=== PATIENT | male | born 1965 | race Caucasian/White ===

== ENCOUNTER → 2016-06-17 | Outpatient (REF) | payer OTHER | LOC: M SFHCADAM 08:44 | PROVIDERS: ATTEND Family Medicine | DX: E78.2 Mixed hyperlipidemia (principal) ==

== ENCOUNTER → 2018-08-10 | Outpatient (REF) | payer BC ==
[2018-08-10 13:42] LABS: BASO # 0.1 10^3/uL (0.0-0.2); EOS # 0.8 10^3/uL (0.0-0.50); EOS % 5.6 % (0.0-3.0); HEMATOCRIT 47.5 % (42.0-52.0); HEMOGLOBIN 15.8 g/dl (13.5-17.5); LYMPH # 3.3 10^3/uL (1.5-4.5); LYMPH % 24.4 % (24.0-44.0); MEAN CORPUSCULAR HEMOGLOBIN 29.8 pg (27.0-33.0); MEAN CORPUSCULAR HGB CONC 33.3 g/dl (32.0-36.5); MEAN CORPUSCULAR VOLUME 89.6 fl (80.0-96.0); MONO # 0.8 10^3/uL (0.0-0.8); MONO % 5.9 % (0.0-5.0); NEUTROPHILS # 8.5 10^3/uL (1.8-7.7); NEUTROPHILS % 62.7 % (36.0-66.0); PLATELET COUNT, AUTOMATED 254 10^3/uL (150-450); WHITE BLOOD COUNT 13.5 10^3/uL (4.0-10.0)
[2018-08-10 13:46] LABS: ALBUMIN 3.8 GM/DL (3.2-5.2); ALT/SGPT 52 U/L (12-78); BILIRUBIN,TOTAL 0.5 MG/DL (0.2-1.0); BLOOD UREA NITROGEN 13 MG/DL (7-18); CALCIUM LEVEL 9.3 MG/DL (8.5-10.1); CARBON DIOXIDE LEVEL 29 MEQ/L (21-32); CHLORIDE LEVEL 105 MEQ/L (98-107); CHOLESTEROL LEVEL 203 MG/DL (<200); CREATININE FOR GFR 1.02 MG/DL (0.70-1.30); GLOMERULAR FILTRATION RATE > 60.0 (>56); GLUCOSE, FASTING 90 MG/DL (70-100); HDL CHOLESTEROL 43 MG/DL (>40); LDL CHOLESTEROL 124 MG/DL (<100); NON-HDL-C 160 MG/DL; POTASSIUM SERUM 4.6 MEQ/L (3.5-5.1); SODIUM LEVEL 140 MEQ/L (136-145); TRIGLYCERIDES LEVEL 182 MG/DL (<150)
== END ==
LOC: M SFHCADAM 08:22
PROVIDERS: ATTEND Family Medicine
DX: Z00.00 Encounter for general adult medical examination without abnormal findings (principal); Z12.11 Encounter for screening for malignant neoplasm of colon

== ENCOUNTER → 2019-03-08 | Outpatient (REF) | payer BC ==
[2019-03-08 15:44] LABS: BASO # 0.1 10^3/uL (0.0-0.2); BASO % 0.8 % (0.0-1.0); EOS # 0.5 10^3/uL (0.0-0.5); EOS % 5.2 % (0.0-3.0); HEMATOCRIT 48.2 % (42.0-52.0); LYMPH # 3.6 10^3/uL (1.5-5.0); LYMPH % 37.6 % (24.0-44.0); MEAN CORPUSCULAR HEMOGLOBIN 29.6 pg (27.0-33.0); MEAN CORPUSCULAR HGB CONC 33.2 g/dl (32.0-36.5); MEAN CORPUSCULAR VOLUME 89.3 fl (80.0-96.0); MONO # 0.6 10^3/uL (0.0-0.8); MONO % 6.3 % (0.0-5.0); NEUTROPHILS # 4.8 10^3/uL (1.5-8.5); NEUTROPHILS % 49.8 % (36.0-66.0); PLATELET COUNT, AUTOMATED 277 10^3/uL (150-450); WHITE BLOOD COUNT 9.6 10^3/uL (4.0-10.0)
[2019-03-08 16:17] LABS: CHOLESTEROL RISK RATIO 4.317 (<5)
== END ==
LOC: M SFHCADAM 07:45
PROVIDERS: ATTEND Family Medicine
DX: D72.829 Elevated white blood cell count, unspecified (principal); E78.2 Mixed hyperlipidemia

== ENCOUNTER 2021-04-07 16:58 | Inpatient (IN) | payer BC ==
[~2021-04-07] VITALS: Ht 180.3 cm; Wt 84.5 kg
[2021-04-07] MEDS ORDERED: BENZ-18 (17:04)
[2021-04-07] MEDS ORDERED: SIMV20TA22 (17:04)
[2021-04-07] MEDS ORDERED: LISI10TA22 (17:04)
[2021-04-08] MEDS ORDERED: ALBUTEROL SULFATE 2.5 MG/0.5 ML INH NEB SOLN NEB ONE (00:35)
[2021-04-08] MEDS ORDERED: guaiFENesin DM LIQ 10ML UD PO ONE (00:40)
[2021-04-08 00:58] LABS: BASO # 0.2 10^3/uL (0.0-0.2); BASO % 0.8 % (0.0-1.0); EOS # 1.9 10^3/uL (0.0-0.5); HEMATOCRIT 46.5 % (42.0-52.0); HEMOGLOBIN 15.1 g/dl (13.5-17.5); LYMPH # 3.4 10^3/uL (1.5-5.0); LYMPH % 16.3 % (24.0-44.0); MEAN CORPUSCULAR HEMOGLOBIN 27.2 pg (27.0-33.0); MEAN CORPUSCULAR HGB CONC 32.5 g/dl (32.0-36.5); MEAN CORPUSCULAR VOLUME 83.8 fl (80.0-96.0); MONO % 7.8 % (2.0-8.0); NEUTROPHILS # 13.7 10^3/uL (1.5-8.5); NEUTROPHILS % 65.4 % (36.0-66.0); PLATELET COUNT, AUTOMATED 413 10^3/uL (150-450); RED BLOOD COUNT 5.55 10^6/uL (4.30-6.10)
[2021-04-08 01:14] LABS: MONO # 1.6 10^3/uL (0.0-0.8)
[2021-04-08 01:21] LABS: BLOOD UREA NITROGEN 13 MG/DL (7-18); CALCIUM LEVEL 9.8 MG/DL (8.5-10.1); CARBON DIOXIDE LEVEL 28 MEQ/L (21-32); CHLORIDE LEVEL 102 MEQ/L (98-107); CREATININE FOR GFR 0.85 MG/DL (0.70-1.30); GLOMERULAR FILTRATION RATE > 60.0 (>56); GLUCOSE, FASTING 112 MG/DL (70-100); SODIUM LEVEL 137 MEQ/L (136-145)
[2021-04-08] MEDS ORDERED: ISOVUE-370 76% 100ML VIAL As Ordered ONE (01:22)
[2021-04-08 01:43] LABS: C REACTIVE PROTEIN QUANTITATIV 8.41 MG/DL (0.00-0.30)
[2021-04-08 01:47] LABS: VENOUS BASE EXCESS 0.8 (-2.0-2.0); VENOUS HCO3 26.3 MEQ/L (23.0-27.0); VENOUS O2 SATURATION 73.6 % (60.0-80.0); VENOUS PARTIAL PRESSURE CO2 44.7 mmHg (38.0-50.0); VENOUS PARTIAL PRESSURE O2 39.7 mmHg (30.0-50.0); VENOUS PH 7.387 UNITS (7.330-7.430); VENOUS STANDARD HCO3 24.6 MEQ/L; VENOUS TOTAL CO2 27.6 MEQ/L (24.0-28.0)
[2021-04-08 01:48] LABS: ERYTHROCYTE SEDIMENTATION RATE 28 mm/hr (0-20)
[2021-04-08] MEDS ORDERED: LevoFLOXacin IV 750 MG in IV 1 EA IV ONE (03:15)
[2021-04-08] MEDS ORDERED: BENZ-18 PO (03:17)
[2021-04-08] MEDS ORDERED: LISI10TA22 PO (03:17)
[2021-04-08] MEDS ORDERED: FISH1000 PO (03:17)
[2021-04-08] MEDS ORDERED: SIMV20TA22 PO (03:17)
[2021-04-08] MEDS ORDERED: HOME MED LIST COMPLETE! XX SCH (03:20)
[2021-04-08] MEDS ORDERED: guaiFENesin SYRUP 200 MG/10 ML UDC PO PRN (04:15)
[2021-04-08] MEDS ORDERED: IPRATROPIUM 0.5MG/ALBUTEROL 2.5MG INH SOL UD 3ML (DUONEB) NEB PRN (04:15)
[2021-04-08] MEDS ORDERED: ACETAMINOPHEN TAB 650MG DOSE (2X325MG) PO PRN (04:15)
[2021-04-08] MEDS ORDERED: BENZONATATE 100MG CAPSULE PO PRN (04:25)
[2021-04-08] MEDS ORDERED: VANCOMYCIN HCL 1,000 MG in IV FLUID PLACE HOLDER 1 EA IV ONE (04:25)
[2021-04-08] MEDS ORDERED: VANCOMYCIN HCL 1,000 MG, VIAL MATE ADAPTER 1 EACH in NS 250 ML IV SCH (05:00)
[2021-04-08] MEDS ORDERED: VANCOMYCIN HCL 1,000 MG, VIAL MATE ADAPTER 1 EACH in NS 250 ML IV ONE (06:00)
[2021-04-08 08:41] LABS: BASO # 0.1 10^3/uL (0.0-0.2); BASO % 0.6 % (0.0-1.0); EOS # 1.7 10^3/uL (0.0-0.5); EOS % 9.3 % (0.0-3.0); HEMATOCRIT 42.3 % (42.0-52.0); HEMOGLOBIN 13.8 g/dl (13.5-17.5); LYMPH # 2.3 10^3/uL (1.5-5.0); LYMPH % 12.3 % (24.0-44.0); MEAN CORPUSCULAR HEMOGLOBIN 27.1 pg (27.0-33.0); MEAN CORPUSCULAR HGB CONC 32.6 g/dl (32.0-36.5); MEAN CORPUSCULAR VOLUME 83.1 fl (80.0-96.0); MONO # 1.5 10^3/uL (0.0-0.8); NEUTROPHILS # 12.8 10^3/uL (1.5-8.5); NEUTROPHILS % 69.3 % (36.0-66.0); PLATELET COUNT, AUTOMATED 387 10^3/uL (150-450); RED BLOOD COUNT 5.09 10^6/uL (4.30-6.10); WHITE BLOOD COUNT 18.6 10^3/uL (4.0-10.0)
[2021-04-08 08:51] LABS: INR 0.99; PROTHROMBIN TIME 13.5 SECONDS (12.7-14.5)
[2021-04-08 08:52] LABS: PARTIAL THROMBOPLASTIN TIME 30.7 SECONDS (25.9-37.0)
[2021-04-08] MEDS ORDERED: ENOXAPARIN 40MG/0.4ML SYRINGE (J1650 PER 10MG) SC SCH (09:00)
[2021-04-08 09:09] LABS: BLOOD UREA NITROGEN 11 MG/DL (7-18); CARBON DIOXIDE LEVEL 25 MEQ/L (21-32); CHLORIDE LEVEL 105 MEQ/L (98-107); GLOMERULAR FILTRATION RATE > 60.0 (>56); GLUCOSE, FASTING 83 MG/DL (70-100); POTASSIUM SERUM 4.4 MEQ/L (3.5-5.1); SODIUM LEVEL 138 MEQ/L (136-145)
[2021-04-08] MEDS ORDERED: LEVO750T13 PO (09:28)
[2021-04-08 10:00] VITALS: BP 122/78
[2021-04-08] MEDS ORDERED: SIMVASTATIN 20 MG TAB PO SCH (21:00)
[2021-04-09] MEDS ORDERED: LevoFLOXacin IV 750 MG in IV 1 EA IV SCH (03:00)
== END 2021-04-08 10:08 | disposition home or self-care (01) | DRG 139 ==
LOC: M ED 16:58 → M ED INP 04-08 04:12
PROVIDERS: ADMIT Family Medicine; ATTEND Family Medicine
DX: J18.8 Other pneumonia, unspecified organism (principal); I10 Essential (primary) hypertension; E78.5 Hyperlipidemia, unspecified; Z87.891 Personal history of nicotine dependence; Z88.0 Allergy status to penicillin; Z79.899 Other long term (current) drug therapy; R91.8 Other nonspecific abnormal finding of lung field; Z20.822 Contact with and (suspected) exposure to COVID-19

== ENCOUNTER → 2021-04-28 | Outpatient (CLI) | payer BC ==
[~2021-04-28] MED LIST: BENZ-18; BENZ-18 PO; FISH1000 PO; HOME MED LIST COMPLETE! XX SCH; LEVO750T13 PO; LIDOCAINE 1% MDV 20ML VIAL As Ordered ONE; LISI10TA22; LISI10TA22 PO; SIMV20TA22; SIMV20TA22 PO
[2021-04-28 12:10] VITALS: BP 146/70
== END ==
LOC: M IRPRO 08:06
PROVIDERS: ATTEND Internal Medicine Pulmonary Disease
DX: C34.32 Malignant neoplasm of lower lobe, left bronchus or lung (principal)

== ENCOUNTER → 2021-05-13 | Outpatient (CLI) | payer BC ==
[~2021-05-13] MED LIST changes: +FOLI1TAB11 PO; -HOME MED LIST COMPLETE! XX SCH; +MIDAZOLAM INJ 2MG/2ML VIAL (J2250 PER 1MG) As Ordered ONE; +ONDA-84 PO; +PROC10TA5 PO; +VANCOMYCIN 1000MG/20ML VIAL As Ordered ONE; +diphenhydrAMINE 50MG/ML VIAL (J1200) As Ordered ONE; +fentaNYL 100 MCG/2 ML INJECTION As Ordered ONE
[2021-05-13] MEDS: NS 1,000 ML IV SCH (07:19)
[2021-05-13] MEDS: VANCOMYCIN HCL 1,000 MG, VIAL MATE ADAPTER 1 EACH in NS 250 ML IV ONE (07:19)
[2021-05-13 10:06] VITALS: BP 133/77
== END ==
LOC: M IRPRO 06:49
PROVIDERS: ATTEND Specialist
DX: C34.32 Malignant neoplasm of lower lobe, left bronchus or lung (principal); Z88.0 Allergy status to penicillin
CPT/HCPCS: 36561; 99152; 99153; C1769; C1788; C1894; J1200; J1642; J1644; J2250; J3010; J3370

== ENCOUNTER → 2021-06-01 | Outpatient (POV) | payer BC ==
[~2021-06-01] VITALS: Ht 180.3 cm; Wt 80.4 kg
[~2021-06-01] MED LIST changes: +DEXA4TA PO; -LIDOCAINE 1% MDV 20ML VIAL As Ordered ONE; -MIDAZOLAM INJ 2MG/2ML VIAL (J2250 PER 1MG) As Ordered ONE; -VANCOMYCIN 1000MG/20ML VIAL As Ordered ONE; -diphenhydrAMINE 50MG/ML VIAL (J1200) As Ordered ONE; -fentaNYL 100 MCG/2 ML INJECTION As Ordered ONE
[2021-06-01 08:35] VITALS: BP 112/68
== END ==
LOC: M IRPOV 08:30
PROVIDERS: ATTEND Radiology Diagnostic Radiology
DX: Z45.2 Encounter for adjustment and management of vascular access device (principal)

== ENCOUNTER → 2021-08-11 | Outpatient (CLI) | payer BC ==
[~2021-08-11] MED LIST changes: +GASTROGRAFIN SOLUTION 30ML (Q9963) As Ordered ONE; +ISOVUE-370 76% 100ML VIAL As Ordered ONE
== END ==
LOC: M RAD 07:42
PROVIDERS: ATTEND Internal Medicine Medical Oncology
DX: C34.32 Malignant neoplasm of lower lobe, left bronchus or lung (principal); N28.1 Cyst of kidney, acquired; K76.89 Other specified diseases of liver; I31.3 Pericardial effusion (noninflammatory); I70.0 Atherosclerosis of aorta
CPT/HCPCS: 71260; 74160; Q9963; Q9967

== ENCOUNTER → 2021-10-26 | Outpatient (CLI) | payer BC ==
[~2021-10-26] MED LIST changes: -GASTROGRAFIN SOLUTION 30ML (Q9963) As Ordered ONE; -ISOVUE-370 76% 100ML VIAL As Ordered ONE; +LEVO1TAB40 PO; -LEVO750T13 PO; +OMEP-173 PO
== END ==
LOC: M ONCR 11:02
PROVIDERS: ATTEND General Practice
DX: C34.32 Malignant neoplasm of lower lobe, left bronchus or lung (principal); Z87.891 Personal history of nicotine dependence; Z92.3 Personal history of irradiation; I10 Essential (primary) hypertension; Z79.899 Other long term (current) drug therapy

== ENCOUNTER → 2021-11-04 | Outpatient (CLI) | payer BC ==
[~2021-11-04] MED LIST changes: +OXYC1SOL3 PO
== END ==
LOC: M PLARAD 08:11
PROVIDERS: ATTEND Specialist
DX: C34.92 Malignant neoplasm of unspecified part of left bronchus or lung (principal)
CPT/HCPCS: 78815; A9552

== ENCOUNTER → 2021-11-09 | Outpatient (POV) | payer BC ==
[~2021-11-09] VITALS: Ht 180.3 cm; Wt 61.3 kg
[~2021-11-09] MED LIST changes: +LIDO2SOL17 PO; +SOTO120T PO
[2021-11-09 15:00] VITALS: BP 111/58
== END ==
LOC: M IRPOV 14:54
PROVIDERS: ATTEND Radiology Diagnostic Radiology
DX: C34.90 Malignant neoplasm of unspecified part of unspecified bronchus or lung (principal); I10 Essential (primary) hypertension; R59.0 Localized enlarged lymph nodes; R63.4 Abnormal weight loss; Z79.899 Other long term (current) drug therapy; Z52.3 Bone marrow donor; Z80.1 Family history of malignant neoplasm of trachea, bronchus and lung; Z87.891 Personal history of nicotine dependence; Z88.0 Allergy status to penicillin; Z92.3 Personal history of irradiation

== ENCOUNTER → 2021-11-14 | Outpatient (CLI) | payer BC | LOC: M LABSMTC 11:17 | PROVIDERS: ATTEND Anesthesiology | DX: Z01.812 Encounter for preprocedural laboratory examination (principal); Z20.822 Contact with and (suspected) exposure to COVID-19 ==

== ENCOUNTER → 2021-11-17 | Outpatient (CLI) | payer BC ==
[~2021-11-17] MED LIST changes: +CLINDAMYCIN 600 MG in IV 1 EA IV ONE; +CLINDAMYCIN 600MG/50ML PREMIX BAG As Ordered ONE; +GLUCAGON INJ 1MG VIAL As Ordered ONE; +ISOVUE-300 61% 50ML VIAL As Ordered ONE; +LIDOCAINE 1% MDV 20ML VIAL As Ordered ONE; +LIDOCAINE 2% JELLY 5ML TUBE As Ordered ONE; +MIDAZOLAM INJ 2MG/2ML VIAL (J2250 PER 1MG) As Ordered ONE; +NS 1,000 ML IV SCH; +PERCOCET 5MG/325MG TAB PO PRN; +PROMETHAZINE 25MG/ML 1ML VIAL As Ordered ONE; +diphenhydrAMINE 50MG/ML VIAL (J1200) As Ordered ONE; +fentaNYL 100 MCG/2 ML INJECTION As Ordered ONE
[2021-11-17 15:45] VITALS: BP 139/71
== END ==
LOC: M IRPRO 10:51
PROVIDERS: ATTEND Radiology Diagnostic Radiology
DX: R13.10 Dysphagia, unspecified (principal); C34.90 Malignant neoplasm of unspecified part of unspecified bronchus or lung
CPT/HCPCS: 49440; C1729; C1769; C1887; C1894; J1200; J1610; J2250; J2550; J3010; Q9967

== ENCOUNTER 2021-11-18 11:34 | Outpatient (RCR) | payer BC ==
[~2021-11-18 11:34] MED LIST changes: -CLINDAMYCIN 600 MG in IV 1 EA IV ONE; -CLINDAMYCIN 600MG/50ML PREMIX BAG As Ordered ONE; -GLUCAGON INJ 1MG VIAL As Ordered ONE; -ISOVUE-300 61% 50ML VIAL As Ordered ONE; -LIDOCAINE 1% MDV 20ML VIAL As Ordered ONE; -LIDOCAINE 2% JELLY 5ML TUBE As Ordered ONE; -MIDAZOLAM INJ 2MG/2ML VIAL (J2250 PER 1MG) As Ordered ONE; -NS 1,000 ML IV SCH; -PERCOCET 5MG/325MG TAB PO PRN; -PROMETHAZINE 25MG/ML 1ML VIAL As Ordered ONE; -diphenhydrAMINE 50MG/ML VIAL (J1200) As Ordered ONE; -fentaNYL 100 MCG/2 ML INJECTION As Ordered ONE
[2021-11-19] MEDS ORDERED: OXYC1SOL3 PO ×2 (08:14→11:49)
== END 2021-11-26 ==
LOC: M ONCR 11:34
PROVIDERS: ATTEND General Practice
DX: C34.32 Malignant neoplasm of lower lobe, left bronchus or lung (principal); Z93.1 Gastrostomy status; R13.10 Dysphagia, unspecified

== ENCOUNTER → 2021-12-02 | Outpatient (CLI) | payer BC ==
[~2021-12-02] MED LIST changes: +HOME MED LIST COMPLETE! XX SCH; +LIDOCAINE 1% MDV 20ML VIAL As Ordered ONE
[2021-12-02 14:15] VITALS: BP 138/66
== END ==
LOC: M IRPRO 10:06
PROVIDERS: ATTEND Internal Medicine
DX: C34.90 Malignant neoplasm of unspecified part of unspecified bronchus or lung (principal)

== ENCOUNTER → 2021-12-07 | Outpatient (POV) | payer BC ==
[~2021-12-07] VITALS: Ht 180.3 cm; Wt 56.8 kg
[~2021-12-07] MED LIST changes: -HOME MED LIST COMPLETE! XX SCH; -LIDOCAINE 1% MDV 20ML VIAL As Ordered ONE
[2021-12-07 13:15] VITALS: BP 125/78
== END ==
LOC: M IRPOV 13:02
PROVIDERS: ATTEND Radiology Diagnostic Radiology
DX: Z48.815 Encounter for surgical aftercare following surgery on the digestive system (principal); Z43.1 Encounter for attention to gastrostomy

== ENCOUNTER → 2021-12-17 | Outpatient (CLI) | payer BC | LOC: M ONCR 12:46 | PROVIDERS: ATTEND General Practice | DX: R07.9 Chest pain, unspecified (principal); Z79.891 Long term (current) use of opiate analgesic; Z92.3 Personal history of irradiation ==

== ENCOUNTER → 2022-01-04 | Outpatient (POV) | payer BC ==
[~2022-01-04] VITALS: Ht 180.3 cm; Wt 61.3 kg
[2022-01-04 14:50] VITALS: BP 156/83
== END ==
LOC: M IRPOV 14:41
PROVIDERS: ATTEND Radiology Diagnostic Radiology
DX: Z43.1 Encounter for attention to gastrostomy (principal); Z88.0 Allergy status to penicillin

== ENCOUNTER → 2022-01-18 | Outpatient (POV) | payer BC ==
[~2022-01-18] VITALS: Ht 177.8 cm; Wt 71.8 kg
[2022-01-18 08:50] VITALS: BP 143/88
== END ==
LOC: M IRPOV 08:23
PROVIDERS: ATTEND Radiology Diagnostic Radiology
DX: Z43.1 Encounter for attention to gastrostomy (principal); Z88.0 Allergy status to penicillin

== ENCOUNTER → 2022-03-16 | Outpatient (CLI) | payer OTHER ==
[~2022-03-16] MED LIST changes: +GABA-282 PO
== END ==
LOC: M ONCR 12:43
PROVIDERS: ATTEND General Practice
DX: C34.32 Malignant neoplasm of lower lobe, left bronchus or lung (principal); Z79.899 Other long term (current) drug therapy; Z87.891 Personal history of nicotine dependence; Z88.0 Allergy status to penicillin; Z92.3 Personal history of irradiation

== ENCOUNTER 2022-03-29 13:17 | Emergency (ER) | payer OTHER ==
[~2022-03-29] VITALS: Ht 177.8 cm; Wt 69.5 kg
[~2022-03-29 13:17] MED LIST changes: +LIDO15SO4 PO; -LIDO2SOL17 PO
[2022-03-29] MEDS ORDERED: MORPHINE 4 MG/ML 1ML VIAL IV ONE (15:40)
[2022-03-29] MEDS ORDERED: NS 1,000 ML IV ONE (15:40)
[2022-03-29 16:29] LABS: BASO # 0.1 10^3/uL (0.0-0.2); BASO % 1.1 % (0.0-1.0); EOS # 0.5 10^3/uL (0.0-0.5); EOS % 6.2 % (0.0-3.0); HEMATOCRIT 42.3 % (42.0-52.0); HEMOGLOBIN 13.9 g/dl (13.5-17.5); LYMPH # 1.8 10^3/uL (1.5-5.0); LYMPH % 20.8 % (24.0-44.0); MEAN CORPUSCULAR HEMOGLOBIN 29.8 pg (27.0-33.0); MEAN CORPUSCULAR HGB CONC 32.9 g/dl (32.0-36.5); MEAN CORPUSCULAR VOLUME 90.8 fl (80.0-96.0); MONO # 0.7 10^3/uL (0.0-0.8); MONO % 7.8 % (2.0-8.0); NEUTROPHILS # 5.4 10^3/uL (1.5-8.5); NEUTROPHILS % 63.9 % (36.0-66.0); PLATELET COUNT, AUTOMATED 210 10^3/uL (150-450); RED BLOOD COUNT 4.66 10^6/uL (4.30-6.10); WHITE BLOOD COUNT 8.4 10^3/uL (4.0-10.0)
[2022-03-29 16:43] LABS: LIPASE 24 U/L (12-53)
[2022-03-29 16:45] LABS: ALBUMIN 3.7 G/DL (3.2-5.2); ALKALINE PHOSPHATASE 68 U/L (46-116); ALT/SGPT 15 U/L (7.0-40); AST/SGOT 18 U/L (<34); BILIRUBIN,DIRECT < 0.1 MG/DL (<0.4); BILIRUBIN,TOTAL 0.3 MG/DL (0.3-1.2); BLOOD UREA NITROGEN 14 MG/DL (9-23); CALCIUM LEVEL 9.3 MG/DL (8.5-10.1); CARBON DIOXIDE LEVEL 25 MMOL/L (20-31); CHLORIDE LEVEL 103 MMOL/L (98-107); CREATININE FOR GFR 0.62 MG/DL (0.70-1.30); GLOMERULAR FILTRATION RATE > 60.0 (>56); GLUCOSE, FASTING 82 MG/DL (60-100); POTASSIUM SERUM 4.1 MMOL/L (3.5-5.1); SODIUM LEVEL 138 MMOL/L (136-145); TOTAL PROTEIN 6.8 G/DL (5.7-8.2)
[2022-03-29] MEDS ORDERED: ISOVUE-370 76% 100ML VIAL As Ordered ONE (17:10)
[2022-03-29 18:22] VITALS: BP 135/79
[2022-03-29] MEDS ORDERED: SODIUM CHLORIDE 0.9% INJ 10 ML SYR IV PRN (19:10)
[2022-03-29] MEDS ORDERED: OXYC1TAB23 PO (19:19)
[2022-03-30] MEDS ORDERED: SODIUM CHLORIDE 0.9% INJ 10 ML SYR IV SCH (09:00)
[2022-04-04] MEDS ORDERED: OXYC1TAB23 PO (14:22)
== END 2022-03-29 19:47 | disposition home or self-care (01) ==
LOC: M ED 13:17
DX: R10.11 Right upper quadrant pain (principal); R00.1 Bradycardia, unspecified; C34.00 Malignant neoplasm of unspecified main bronchus; E78.5 Hyperlipidemia, unspecified; I10 Essential (primary) hypertension; Z88.0 Allergy status to penicillin; Z87.891 Personal history of nicotine dependence; Z79.811 Long term (current) use of aromatase inhibitors; Z79.899 Other long term (current) drug therapy
CPT/HCPCS: 74177; 80048; 80076; 81000; 81015; 83690; 85025; 93005; 96361; 96374; 99284; J2270

== ENCOUNTER → 2022-04-07 | Outpatient (CLI) | payer BC, OTHER ==
[~2022-04-07] MED LIST changes: +ISOVUE-370 76% 100ML VIAL As Ordered ONE; +MORP-69 PO; +OXYC1TAB23 PO
== END ==
LOC: M RAD 07:18
PROVIDERS: ATTEND Specialist
DX: C34.90 Malignant neoplasm of unspecified part of unspecified bronchus or lung (principal)
CPT/HCPCS: 71260; J1642

== ENCOUNTER → 2022-04-19 | Outpatient (CLI) | payer OTHER ==
[~2022-04-19] VITALS: Ht 177.8 cm; Wt 64.8 kg
[~2022-04-19] MED LIST changes: -ISOVUE-370 76% 100ML VIAL As Ordered ONE; +MORP15TA2 PO; +ONDA8TAB8 PO; +OXYC20TA2 PO; +SENN-80 PO
[2022-04-19 10:42] VITALS: BP 129/88
== END ==
LOC: M PAL 09:12
PROVIDERS: ATTEND Nurse Practitioner Adult Health
DX: C34.32 Malignant neoplasm of lower lobe, left bronchus or lung (principal); C79.51 Secondary malignant neoplasm of bone; Z51.5 Encounter for palliative care; Z92.3 Personal history of irradiation; Z92.21 Personal history of antineoplastic chemotherapy; K59.00 Constipation, unspecified; I10 Essential (primary) hypertension; G89.3 Neoplasm related pain (acute) (chronic); Z88.0 Allergy status to penicillin; Z80.6 Family history of leukemia; Z79.891 Long term (current) use of opiate analgesic; Z79.899 Other long term (current) drug therapy

== ENCOUNTER 2022-04-22 08:43 | Outpatient (RCR) | payer OTHER ==
[2022-04-12] MEDS: oxyCODONE 5MG TAB PO ONE (14:18)
[2022-04-12] MEDS: MORPHINE 2 MG/ML 1ML VIAL IV ONE (14:19)
[2022-04-28] MEDS ORDERED: MORP15TA2 PO (10:39)
[2022-04-28] MEDS ORDERED: MORP30TASA PO (10:39)
[2022-04-28] MEDS ORDERED: COLA100C5 PO (10:39)
[2022-04-28] MEDS ORDERED: DEXA2TA PO (10:39)
== END 2022-04-26 ==
LOC: M ONCR 08:43
PROVIDERS: ATTEND General Practice
DX: C34.32 Malignant neoplasm of lower lobe, left bronchus or lung (principal)
CPT/HCPCS: 77280; 77290; 77336; 77412; 77417; J2270

== ENCOUNTER → 2022-04-28 | Outpatient (CLI) | payer OTHER ==
[~2022-04-28] VITALS: Ht 177.8 cm; Wt 60.4 kg
[~2022-04-28] MED LIST changes: +COLA100C5 PO; +DEXA2TA PO; +MM S100C PO; +MORP30TASA PO; +MS C15TA8 PO
[2022-04-28 09:20] VITALS: BP 121/86
== END ==
LOC: M PAL 08:52
PROVIDERS: ATTEND Nurse Practitioner Adult Health
DX: C34.32 Malignant neoplasm of lower lobe, left bronchus or lung (principal); C79.51 Secondary malignant neoplasm of bone; G89.3 Neoplasm related pain (acute) (chronic); Z51.5 Encounter for palliative care; Z92.3 Personal history of irradiation; Z92.21 Personal history of antineoplastic chemotherapy; K59.00 Constipation, unspecified; I10 Essential (primary) hypertension; Z80.6 Family history of leukemia; Z88.0 Allergy status to penicillin; Z79.891 Long term (current) use of opiate analgesic; Z79.899 Other long term (current) drug therapy; K21.9 Gastro-esophageal reflux disease without esophagitis; Z52.3 Bone marrow donor

== ENCOUNTER 2022-04-29 09:07 | Inpatient (IN) | payer OTHER ==
[~2022-04-29] VITALS: Ht 177.8 cm; Wt 57.6 kg
[~2022-04-29 09:07] MED LIST changes: -MM S100C PO; -MS C15TA8 PO
[2022-04-29] MEDS ORDERED: ONDANSETRON 4MG 2ML VIAL IV ONE (09:55)
[2022-04-29] MEDS ORDERED: NS 1,000 ML IV ONE ×2 (09:55→13:25)
[2022-04-29] MEDS ORDERED: MORPHINE 4 MG/ML 1ML VIAL IV ONE ×2 (09:55→13:25)
[2022-04-29 10:59] LABS: HEMATOCRIT 43.1 % (42.0-52.0); HEMOGLOBIN 14.9 g/dl (13.5-17.5); MEAN CORPUSCULAR HEMOGLOBIN 29.8 pg (27.0-33.0); MEAN CORPUSCULAR HGB CONC 34.6 g/dl (32.0-36.5); MEAN CORPUSCULAR VOLUME 86.2 fl (80.0-96.0); PLATELET COUNT, AUTOMATED 189 10^3/uL (150-450); WHITE BLOOD COUNT 1.8 10^3/uL (4.0-10.0)
[2022-04-29 11:09] LABS: INR 1.01; PROTHROMBIN TIME 13.5 SECONDS (12.5-14.5)
[2022-04-29 11:10] LABS: PARTIAL THROMBOPLASTIN TIME 24.7 SECONDS (24.8-34.2)
[2022-04-29] MEDS ORDERED: ISOVUE-370 76% 100ML VIAL As Ordered ONE (11:12)
[2022-04-29 11:25] LABS: LIPASE 19 U/L (12-53)
[2022-04-29 11:27] LABS: CPK CREATINE PHOSPHOKINASE 44 U/L (46-171)
[2022-04-29 11:30] LABS: ALBUMIN 3.2 G/DL (3.2-5.2); ALKALINE PHOSPHATASE 99 U/L (46-116); ALT/SGPT 61 U/L (7.0-40); AST/SGOT 25 U/L (<34); BILIRUBIN,DIRECT 0.2 MG/DL (<0.4); BILIRUBIN,TOTAL 0.7 MG/DL (0.3-1.2); CK-MB VALUE MASS < 1.0 NG/ML (<3.6); MB/CK RELATIVE INDEX 2.27 (< OR =4)
[2022-04-29 11:31] LABS: ATYPICAL LYMPH 10 % (0-5); LYMPHOCYTES 18 % (16-44); METAMYELOCYTES 4 % (0-0); MONOCYTES 44 % (0-5); MYELOCYTES 2 % (0-0); NEUTROPHILS 18 % (28-66)
[2022-04-29 11:36] LABS: ANISOCYTOSIS 1+
[2022-04-29 11:37] LABS: PLATELET ESTIMATE NORMAL (NORMAL)
[2022-04-29 16:24] LABS: RSV AMPLIFICATION NEGATIVE (NEGATIVE)
[2022-04-29] MEDS ORDERED: ONDANSETRON 4MG TAB PO PRN (16:40)
[2022-04-29 18:00] VITALS: BP 112/67
[2022-04-29] MEDS: MORPHINE 30 MG TAB **MSIR PO PRN (18:17)
[2022-04-29] MEDS ORDERED: ONDA8TAB8 PO (18:30)
[2022-04-29] MEDS ORDERED: FOLI1TAB11 PO (18:30)
[2022-04-29] MEDS ORDERED: LISI10TA22 PO (18:30)
[2022-04-29] MEDS ORDERED: MORP30TASA PO (18:30)
[2022-04-29] MEDS ORDERED: OMEP-173 PO (18:30)
[2022-04-29] MEDS ORDERED: GABA-282 PO (18:30)
[2022-04-29] MEDS ORDERED: SIMV20TA22 PO (18:30)
[2022-04-29] MEDS ORDERED: MM S100C PO (18:30)
[2022-04-29] MEDS ORDERED: MORP15TA2 PO (18:30)
[2022-04-29] MEDS ORDERED: DEXA2TA PO (18:30)
[2022-04-29] MEDS ORDERED: SENN-80 PO (18:30)
[2022-04-29] MEDS ORDERED: HOME MED LIST COMPLETE! XX SCH (18:35)
[2022-04-29] MEDS: SENOKOT S TAB PO SCH (19:00)
[2022-04-29 20:00] VITALS: BP 134/87
[2022-04-29] MEDS: MORPHINE 30 MG SA TAB PO SCH (20:09)
[2022-04-29] MEDS: GABAPENTIN 300 MG CAP PO SCH (20:09)
[2022-04-30] MEDS: ACETAMINOPHEN TAB 650MG DOSE (2X325MG) PO PRN (05:45)
[2022-04-30 06:00] VITALS: BP 126/81
[2022-04-30 08:23] LABS: HEMATOCRIT 35.8 % (42.0-52.0); MEAN CORPUSCULAR HEMOGLOBIN 29.6 pg (27.0-33.0); MEAN CORPUSCULAR HGB CONC 33.5 g/dl (32.0-36.5); MEAN CORPUSCULAR VOLUME 88.2 fl (80.0-96.0); PLATELET COUNT, AUTOMATED 177 10^3/uL (150-450); RED BLOOD COUNT 4.06 10^6/uL (4.30-6.10); WHITE BLOOD COUNT 3.6 10^3/uL (4.0-10.0)
[2022-04-30] MEDS: SENOKOT S TAB PO SCH ×2 (08:24→20:00)
[2022-04-30] MEDS: MORPHINE 30 MG SA TAB PO SCH ×2 (08:24→20:01)
[2022-04-30] MEDS: GABAPENTIN 300 MG CAP PO SCH ×3 (08:24→20:00)
[2022-04-30] MEDS: ENOXAPARIN 40MG/0.4ML SYRINGE (J1650 PER 10MG) SC SCH (08:24)
[2022-04-30 09:00] LABS: ALBUMIN 2.5 G/DL (3.2-5.2); ALKALINE PHOSPHATASE 72 U/L (46-116); ALT/SGPT 37 U/L (7.0-40); AST/SGOT 19 U/L (<34); BILIRUBIN,TOTAL 0.4 MG/DL (0.3-1.2); BLOOD UREA NITROGEN 23 MG/DL (9-23); CARBON DIOXIDE LEVEL 25 MMOL/L (20-31); CHLORIDE LEVEL 105 MMOL/L (98-107); CREATININE FOR GFR 0.62 MG/DL (0.70-1.30); GLOMERULAR FILTRATION RATE > 60.0 (>56); GLUCOSE, FASTING 98 MG/DL (60-100); MAGNESIUM LEVEL 1.7 MG/DL (1.8-2.4); POTASSIUM SERUM 4.1 MMOL/L (3.5-5.1); SODIUM LEVEL 138 MMOL/L (136-145); TOTAL PROTEIN 5.4 G/DL (5.7-8.2)
[2022-04-30] MEDS ORDERED: MAGNESIUM OXIDE 400MG TAB (MAG-OX) PO ONE (09:05)
[2022-04-30 14:00] VITALS: BP 120/79
[2022-04-30 22:00] VITALS: BP 119/80
[2022-05-01] MEDS: ACETAMINOPHEN TAB 650MG DOSE (2X325MG) PO PRN ×2 (05:31→14:45)
[2022-05-01 06:00] VITALS: BP 122/80
[2022-05-01 06:41] LABS: HEMOGLOBIN 12.8 g/dl (13.5-17.5); MEAN CORPUSCULAR HEMOGLOBIN 29.5 pg (27.0-33.0); MEAN CORPUSCULAR HGB CONC 32.8 g/dl (32.0-36.5); MEAN CORPUSCULAR VOLUME 89.9 fl (80.0-96.0); PLATELET COUNT, AUTOMATED 188 10^3/uL (150-450); RED BLOOD COUNT 4.34 10^6/uL (4.30-6.10); WHITE BLOOD COUNT 5.2 10^3/uL (4.0-10.0)
[2022-05-01 07:08] LABS: ALBUMIN 2.6 G/DL (3.2-5.2); ALKALINE PHOSPHATASE 73 U/L (46-116); ALT/SGPT 44 U/L (7.0-40); AST/SGOT 21 U/L (<34); BILIRUBIN,TOTAL 0.3 MG/DL (0.3-1.2); BLOOD UREA NITROGEN 23 MG/DL (9-23); CALCIUM LEVEL 8.1 MG/DL (8.5-10.1); CARBON DIOXIDE LEVEL 28 MMOL/L (20-31); CHLORIDE LEVEL 104 MMOL/L (98-107); CREATININE FOR GFR 0.69 MG/DL (0.70-1.30); GLOMERULAR FILTRATION RATE > 60.0 (>56); GLUCOSE, FASTING 86 MG/DL (60-100); MAGNESIUM LEVEL 1.9 MG/DL (1.8-2.4); SODIUM LEVEL 139 MMOL/L (136-145); TOTAL PROTEIN 5.5 G/DL (5.7-8.2)
[2022-05-01 07:10] LABS: ATYPICAL LYMPH 2 % (0-5); EOSINOPHILS 4 % (0-3); LYMPHOCYTES 29 % (16-44); METAMYELOCYTES 7 % (0-0); MONOCYTES 17 % (0-5); MYELOCYTES 3 % (0-0); NEUTROPHILS 29 % (28-66)
[2022-05-01 07:12] LABS: OVALOCYTES 1+; PLATELET ESTIMATE NORMAL (NORMAL); POIKILOCYTOSIS 1+; SCHISTOCYTES 1+
[2022-05-01] MEDS: ENOXAPARIN 40MG/0.4ML SYRINGE (J1650 PER 10MG) SC SCH (09:56)
[2022-05-01] MEDS: GABAPENTIN 300 MG CAP PO SCH ×3 (09:56→20:12)
[2022-05-01] MEDS: SENOKOT S TAB PO SCH ×2 (09:56→20:11)
[2022-05-01] MEDS: MORPHINE 30 MG SA TAB PO SCH ×2 (09:57→20:12)
[2022-05-01] MEDS: MORPHINE 30 MG TAB **MSIR PO PRN ×2 (12:12→17:36)
[2022-05-01 14:00] VITALS: BP 112/60
[2022-05-01] MEDS ORDERED: GI COCKTAIL 50ML BTL(HYOSCYAMINE/MAALOX/LIDOCAINE VISCOUS)(1:3:1) PO ONE (14:00)
[2022-05-01] MEDS ORDERED: SODIUM CHLORIDE NASAL 0.65% SPRAY BTL (OCEAN) PRN (15:45)
[2022-05-01 22:00] VITALS: BP 117/72
[2022-05-02 06:00] VITALS: BP 119/75
[2022-05-02 06:09] LABS: HEMATOCRIT 36.9 % (42.0-52.0); HEMOGLOBIN 12.4 g/dl (13.5-17.5); MEAN CORPUSCULAR HEMOGLOBIN 29.7 pg (27.0-33.0); MEAN CORPUSCULAR HGB CONC 33.6 g/dl (32.0-36.5); MEAN CORPUSCULAR VOLUME 88.3 fl (80.0-96.0); PLATELET COUNT, AUTOMATED 180 10^3/uL (150-450); RED BLOOD COUNT 4.18 10^6/uL (4.30-6.10); WHITE BLOOD COUNT 5.2 10^3/uL (4.0-10.0)
[2022-05-02 06:45] LABS: ALBUMIN 2.4 G/DL (3.2-5.2); ALKALINE PHOSPHATASE 69 U/L (46-116); ALT/SGPT 43 U/L (7.0-40); AST/SGOT 21 U/L (<34); BILIRUBIN,TOTAL 0.3 MG/DL (0.3-1.2); BLOOD UREA NITROGEN 21 MG/DL (9-23); CALCIUM LEVEL 7.8 MG/DL (8.5-10.1); CARBON DIOXIDE LEVEL 27 MMOL/L (20-31); CHLORIDE LEVEL 103 MMOL/L (98-107); CREATININE FOR GFR 0.62 MG/DL (0.70-1.30); GLOMERULAR FILTRATION RATE > 60.0 (>56); GLUCOSE, FASTING 101 MG/DL (60-100); MAGNESIUM LEVEL 1.9 MG/DL (1.8-2.4); POTASSIUM SERUM 4.2 MMOL/L (3.5-5.1); SODIUM LEVEL 137 MMOL/L (136-145)
[2022-05-02 07:50] LABS: ANISOCYTOSIS 1+; ATYPICAL LYMPH 6 % (0-5); LYMPHOCYTES 18 % (16-44); METAMYELOCYTES 1 % (0-0); MONOCYTES 22 % (0-5); MYELOCYTES 1 % (0-0); NEUTROPHILS 50 % (28-66); PLATELET ESTIMATE NORMAL (NORMAL); POIKILOCYTOSIS 1+
[2022-05-02 07:51] LABS: POLYCHROMASIA 1+
[2022-05-02] MEDS: MORPHINE 30 MG TAB **MSIR PO PRN ×3 (08:27→16:29)
[2022-05-02 09:20] LABS: TOTAL PROTEIN 5.2 G/DL (5.7-8.2)
[2022-05-02] MEDS: ENOXAPARIN 40MG/0.4ML SYRINGE (J1650 PER 10MG) SC SCH (09:46)
[2022-05-02] MEDS: MORPHINE 30 MG SA TAB PO SCH ×2 (09:47→20:39)
[2022-05-02] MEDS: SENOKOT S TAB PO SCH ×2 (09:47→20:38)
[2022-05-02] MEDS: GABAPENTIN 300 MG CAP PO SCH ×3 (09:47→20:38)
[2022-05-02] MEDS: LIDOCAINE 5% (LIDODERM) PATCH TD ONE ×2 (11:53→12:29)
[2022-05-02] MEDS ORDERED: MORPHINE 2 MG/ML 1ML VIAL IV ONE (12:15)
[2022-05-02] MEDS ORDERED: MORPHINE 2 MG/ML 1ML VIAL As Ordered ONE (12:17)
[2022-05-02] MEDS: ACETAMINOPHEN TAB 650MG DOSE (2X325MG) PO PRN (12:30)
[2022-05-02] MEDS ORDERED: PILL CUTTER 1 EACH XX PRN (13:00)
[2022-05-02 15:00] VITALS: BP 103/75
[2022-05-02] MEDS: MORPHINE 15 MG SA TAB PO SCH (20:39)
[2022-05-02 22:00] VITALS: BP 114/72
[2022-05-03] MEDS: MORPHINE 30 MG TAB **MSIR PO PRN ×4 (02:12→14:15)
[2022-05-03 06:00] VITALS: BP 118/78
[2022-05-03 06:11] LABS: HEMATOCRIT 37.7 % (42.0-52.0); HEMOGLOBIN 12.6 g/dl (13.5-17.5); MEAN CORPUSCULAR HEMOGLOBIN 29.5 pg (27.0-33.0); MEAN CORPUSCULAR HGB CONC 33.4 g/dl (32.0-36.5); MEAN CORPUSCULAR VOLUME 88.3 fl (80.0-96.0); PLATELET COUNT, AUTOMATED 178 10^3/uL (150-450); RED BLOOD COUNT 4.27 10^6/uL (4.30-6.10); WHITE BLOOD COUNT 6.8 10^3/uL (4.0-10.0)
[2022-05-03 06:54] LABS: ALBUMIN 2.4 G/DL (3.2-5.2); ALKALINE PHOSPHATASE 67 U/L (46-116); ALT/SGPT 45 U/L (7.0-40); AST/SGOT 20 U/L (<34); BILIRUBIN,TOTAL 0.2 MG/DL (0.3-1.2); BLOOD UREA NITROGEN 21 MG/DL (9-23); CALCIUM LEVEL 7.7 MG/DL (8.5-10.1); CARBON DIOXIDE LEVEL 28 MMOL/L (20-31); CHLORIDE LEVEL 103 MMOL/L (98-107); CREATININE FOR GFR 0.53 MG/DL (0.70-1.30); GLOMERULAR FILTRATION RATE > 60.0 (>56); GLUCOSE, FASTING 79 MG/DL (60-100); MAGNESIUM LEVEL 1.8 MG/DL (1.8-2.4); POTASSIUM SERUM 4.4 MMOL/L (3.5-5.1); SODIUM LEVEL 136 MMOL/L (136-145); TOTAL PROTEIN 5.1 G/DL (5.7-8.2)
[2022-05-03 07:00] LABS: ATYPICAL LYMPH 1 % (0-5); EOSINOPHILS 1 % (0-3); LYMPHOCYTES 12 % (16-44); METAMYELOCYTES 4 % (0-0); MONOCYTES 10 % (0-5); MYELOCYTES 3 % (0-0); NEUTROPHILS 61 % (28-66); OVALOCYTES 1+; PLATELET ESTIMATE NORMAL (NORMAL)
[2022-05-03 07:04] LABS: POIKILOCYTOSIS 1+
[2022-05-03] MEDS: MORPHINE 15 MG SA TAB PO SCH (09:03)
[2022-05-03] MEDS: MORPHINE 30 MG SA TAB PO SCH (09:04)
[2022-05-03] MEDS: SENOKOT S TAB PO SCH (09:04)
[2022-05-03] MEDS: GABAPENTIN 300 MG CAP PO SCH (09:04)
[2022-05-03] MEDS: ENOXAPARIN 40MG/0.4ML SYRINGE (J1650 PER 10MG) SC SCH (09:05)
[2022-05-03] MEDS ORDERED: MORP30TASA PO ×3 (09:30→12:31)
[2022-05-03] MEDS ORDERED: MORP15TA2 PO ×2 (11:44→14:46)
[2022-05-03] MEDS ORDERED: MS C15TA8 PO (12:31)
== END 2022-05-03 14:19 | disposition home or self-care (01) | DRG 343 ==
LOC: M ED 09:07 → M ED INP 16:40 → M MSPAV 17:59
PROVIDERS: ADMIT Family Medicine; ATTEND Internal Medicine Nephrology
DX: M84.58XA Pathological fracture in neoplastic disease, other specified site, initial encounter for fracture (principal); C78.7 Secondary malignant neoplasm of liver and intrahepatic bile duct; E87.20 Acidosis, unspecified; C79.51 Secondary malignant neoplasm of bone; E46 Unspecified protein-calorie malnutrition; K22.2 Esophageal obstruction; C34.90 Malignant neoplasm of unspecified part of unspecified bronchus or lung; E86.0 Dehydration; R13.10 Dysphagia, unspecified; Z92.3 Personal history of irradiation; Z88.0 Allergy status to penicillin; Z79.899 Other long term (current) drug therapy

== ENCOUNTER → 2022-05-03 | Outpatient (POV) | payer OTHER ==
[~2022-05-03] VITALS: Ht 177.8 cm; Wt 61.3 kg
[~2022-05-03] MED LIST changes: +MM S100C PO; +MS C15TA8 PO
[2022-05-03 14:45] VITALS: BP 142/75
== END ==
LOC: M IRPOV 14:34
PROVIDERS: ATTEND Radiology Diagnostic Radiology
DX: C34.90 Malignant neoplasm of unspecified part of unspecified bronchus or lung (principal); C79.51 Secondary malignant neoplasm of bone; M84.58XA Pathological fracture in neoplastic disease, other specified site, initial encounter for fracture; Z87.891 Personal history of nicotine dependence; Z88.0 Allergy status to penicillin; Z79.891 Long term (current) use of opiate analgesic; Z79.899 Other long term (current) drug therapy; Z92.21 Personal history of antineoplastic chemotherapy

== ENCOUNTER → 2022-05-09 | Outpatient (CLI) | payer OTHER | LOC: M LABSMTC 10:31 | PROVIDERS: ATTEND Anesthesiology | DX: Z01.812 Encounter for preprocedural laboratory examination (principal); Z20.822 Contact with and (suspected) exposure to COVID-19 ==

== ENCOUNTER → 2022-05-11 | Outpatient (CLI) | payer OTHER ==
[~2022-05-11] MED LIST changes: +CLINDAMYCIN 600 MG in IV 1 EA IV ONE; +CLINDAMYCIN 600MG/50ML PREMIX BAG As Ordered ONE; +ISOVUE-300 61% 100ML VIAL As Ordered ONE; +LIDOCAINE 1% MDV 20ML VIAL As Ordered ONE; +MIDAZOLAM INJ 2MG/2ML VIAL As Ordered ONE; +NS 1,000 ML IV SCH; +PROMETHAZINE 25MG/ML 1ML VIAL As Ordered ONE; +diphenhydrAMINE 50MG/ML VIAL As Ordered ONE; +fentaNYL 100 MCG/2 ML INJECTION As Ordered ONE
[2022-05-11 16:30] VITALS: BP 106/62
== END ==
LOC: M IRPRO 10:48
PROVIDERS: ATTEND Radiology Diagnostic Radiology
DX: M84.48XA Pathological fracture, other site, initial encounter for fracture (principal); Z79.891 Long term (current) use of opiate analgesic; Z79.899 Other long term (current) drug therapy; Z88.0 Allergy status to penicillin
CPT/HCPCS: 22514; 99152; 99153; C1713; J1200; J2250; J2550; J3010; Q9967; S0077

== ENCOUNTER → 2022-05-31 | Outpatient (CLI) | payer OTHER ==
[~2022-05-31] VITALS: Ht 177.8 cm; Wt 59.6 kg
[~2022-05-31] MED LIST changes: -CLINDAMYCIN 600 MG in IV 1 EA IV ONE; -CLINDAMYCIN 600MG/50ML PREMIX BAG As Ordered ONE; -ISOVUE-300 61% 100ML VIAL As Ordered ONE; -LIDOCAINE 1% MDV 20ML VIAL As Ordered ONE; -MIDAZOLAM INJ 2MG/2ML VIAL As Ordered ONE; -NS 1,000 ML IV SCH; -PROMETHAZINE 25MG/ML 1ML VIAL As Ordered ONE; -diphenhydrAMINE 50MG/ML VIAL As Ordered ONE; -fentaNYL 100 MCG/2 ML INJECTION As Ordered ONE
[2022-05-31 09:34] VITALS: BP 112/79
== END ==
LOC: M PAL 09:27
PROVIDERS: ATTEND Nurse Practitioner Adult Health
DX: C34.32 Malignant neoplasm of lower lobe, left bronchus or lung (principal); C79.51 Secondary malignant neoplasm of bone; G89.3 Neoplasm related pain (acute) (chronic); Z51.5 Encounter for palliative care; Z92.3 Personal history of irradiation; Z92.21 Personal history of antineoplastic chemotherapy; I10 Essential (primary) hypertension; Z80.6 Family history of leukemia; Z88.0 Allergy status to penicillin; Z79.891 Long term (current) use of opiate analgesic; Z79.899 Other long term (current) drug therapy; K21.9 Gastro-esophageal reflux disease without esophagitis; Z52.3 Bone marrow donor; R11.0 Nausea

== ENCOUNTER → 2022-05-31 | Outpatient (POV) | payer OTHER ==
[~2022-05-31] VITALS: Ht 177.8 cm; Wt 59.5 kg
[~2022-05-31] MED LIST changes: +LIDO15SO PO; -LIDO15SO4 PO; +SENN-186 PO; -SENN-80 PO
[2022-05-31 14:25] VITALS: BP 105/71
== END ==
LOC: M IRPOV 14:15
PROVIDERS: ATTEND Radiology Diagnostic Radiology
DX: Z47.89 Encounter for other orthopedic aftercare (principal); M84.48XD Pathological fracture, other site, subsequent encounter for fracture with routine healing; Z88.0 Allergy status to penicillin

== ENCOUNTER → 2022-06-28 | Outpatient (CLI) | payer OTHER ==
[~2022-06-28] VITALS: Ht 177.8 cm; Wt 58.8 kg
[2022-06-28 09:23] VITALS: BP 108/79
== END ==
LOC: M PAL 09:08
PROVIDERS: ATTEND Nurse Practitioner Adult Health
DX: C34.92 Malignant neoplasm of unspecified part of left bronchus or lung (principal); C78.7 Secondary malignant neoplasm of liver and intrahepatic bile duct; C79.51 Secondary malignant neoplasm of bone; R91.8 Other nonspecific abnormal finding of lung field; R59.0 Localized enlarged lymph nodes; Z51.5 Encounter for palliative care; G89.3 Neoplasm related pain (acute) (chronic); Z92.3 Personal history of irradiation; Z92.21 Personal history of antineoplastic chemotherapy; K21.9 Gastro-esophageal reflux disease without esophagitis; R53.83 Other fatigue; Z79.52 Long term (current) use of systemic steroids; Z79.891 Long term (current) use of opiate analgesic; Z79.899 Other long term (current) drug therapy; Z80.1 Family history of malignant neoplasm of trachea, bronchus and lung; Z80.6 Family history of leukemia; Z87.891 Personal history of nicotine dependence; Z88.0 Allergy status to penicillin

== ENCOUNTER → 2022-07-20 | Outpatient (CLI) | payer BC, OTHER | LOC: M ONCR 09:40 | PROVIDERS: ATTEND General Practice | DX: C34.32 Malignant neoplasm of lower lobe, left bronchus or lung (principal); Z87.891 Personal history of nicotine dependence; Z92.3 Personal history of irradiation; Z92.21 Personal history of antineoplastic chemotherapy; R64 Cachexia; M79.651 Pain in right thigh; M79.652 Pain in left thigh; Z79.891 Long term (current) use of opiate analgesic; Z79.899 Other long term (current) drug therapy; Z88.0 Allergy status to penicillin; Z88.1 Allergy status to other antibiotic agents ==

== ENCOUNTER 2022-07-31 16:20 | Inpatient (IN) | payer OTHER ==
[~2022-07-31] VITALS: Ht 177.8 cm; Wt 53.4 kg
[2022-07-31] MEDS ORDERED: NS 1,000 ML IV SCH ×2 (16:40→20:10)
[2022-07-31 16:58] LABS: BASO # 0.1 10^3/uL (0.0-0.2); BASO % 0.3 % (0.0-1.0); EOS % 0.1 % (0.0-3.0); HEMOGLOBIN 11.4 g/dl (13.5-17.5); LYMPH # 1.4 10^3/uL (1.5-5.0); LYMPH % 6.5 % (24.0-44.0); MEAN CORPUSCULAR HEMOGLOBIN 29.1 pg (27.0-33.0); MEAN CORPUSCULAR HGB CONC 32.6 g/dl (32.0-36.5); MEAN CORPUSCULAR VOLUME 89.3 fl (80.0-96.0); MONO # 1.2 10^3/uL (0.0-0.8); MONO % 5.5 % (2.0-8.0); NEUTROPHILS # 18.4 10^3/uL (1.5-8.5); NEUTROPHILS % 86.2 % (36.0-66.0); PLATELET COUNT, AUTOMATED 379 10^3/uL (150-450); RED BLOOD COUNT 3.92 10^6/uL (4.30-6.10); WHITE BLOOD COUNT 21.4 10^3/uL (4.0-10.0)
[2022-07-31] MEDS ORDERED: MORPHINE 30 MG TAB **MSIR PO ONE (17:10)
[2022-07-31 17:20] LABS: ALBUMIN 2.2 G/DL (3.2-5.2); ALKALINE PHOSPHATASE 135 U/L (46-116); ALT/SGPT 107 U/L (7.0-40); AST/SGOT 92 U/L (<34); BILIRUBIN,DIRECT 0.1 MG/DL (<0.4); BILIRUBIN,TOTAL 0.3 MG/DL (0.3-1.2); BLOOD UREA NITROGEN 15 MG/DL (9-23); CALCIUM LEVEL 7.8 MG/DL (8.5-10.1); CARBON DIOXIDE LEVEL 26 MMOL/L (20-31); CHLORIDE LEVEL 105 MMOL/L (98-107); CREATININE FOR GFR 0.55 MG/DL (0.70-1.30); GLOMERULAR FILTRATION RATE > 60.0 (>56); GLUCOSE, FASTING 112 MG/DL (60-100); POTASSIUM SERUM 4.2 MMOL/L (3.5-5.1); SODIUM LEVEL 139 MMOL/L (136-145); TOTAL PROTEIN 5.8 G/DL (5.7-8.2)
[2022-07-31 17:28] LABS: RSV AMPLIFICATION NEGATIVE (NEGATIVE)
[2022-07-31] MEDS ORDERED: LevoFLOXacin IV 750 MG in IV 1 EA IV ONE (18:15)
[2022-07-31] MEDS ORDERED: MORPHINE 4 MG/ML 1ML VIAL IV ONE (18:50)
[2022-07-31] MEDS ORDERED: guaiFENesin ER 600 MG TAB PO PRN (19:10)
[2022-07-31] MEDS ORDERED: ACETAMINOPHEN TAB 650MG DOSE (2X325MG) PO PRN (19:10)
[2022-07-31] MEDS ORDERED: MORP-69 PO (19:32)
[2022-07-31] MEDS ORDERED: MORP30TASA PO (19:32)
[2022-07-31] MEDS ORDERED: HOME MED LIST COMPLETE! XX SCH (19:35)
[2022-07-31] MEDS ORDERED: ONDANSETRON 4MG 2ML VIAL IV PRN (20:10)
[2022-07-31] MEDS ORDERED: MORPHINE 15 MG SA TAB PO PRN (20:10)
[2022-07-31 20:19] VITALS: BP 129/77; TEMP 98.1; O2SAT 98
[2022-07-31] MEDS: FLUTICASONE PROP 0.05% NASAL SPRAY 16 GM (FLONASE) NARES SCH (20:21)
[2022-07-31] MEDS: MORPHINE 4 MG/ML 1ML VIAL IV PRN (20:22)
[2022-07-31] MEDS ORDERED: PILL CUTTER 1 EACH XX PRN (21:45)
[2022-07-31] MEDS: MORPHINE 30 MG SA TAB PO SCH (22:42)
[2022-08-01] MEDS: MORPHINE 4 MG/ML 1ML VIAL IV PRN ×4 (02:58→21:31)
[2022-08-01 05:26] VITALS: BP 110/65; TEMP 98.1; O2SAT 99
[2022-08-01 06:48] LABS: HEMATOCRIT 33.4 % (42.0-52.0); HEMOGLOBIN 10.7 g/dl (13.5-17.5); MEAN CORPUSCULAR HEMOGLOBIN 28.9 pg (27.0-33.0); MEAN CORPUSCULAR VOLUME 90.3 fl (80.0-96.0); PLATELET COUNT, AUTOMATED 348 10^3/uL (150-450); WHITE BLOOD COUNT 17.5 10^3/uL (4.0-10.0)
[2022-08-01 07:21] LABS: ALBUMIN 1.9 G/DL (3.2-5.2); ALKALINE PHOSPHATASE 120 U/L (46-116); ALT/SGPT 90 U/L (7.0-40); AST/SGOT 66 U/L (<34); BILIRUBIN,TOTAL 0.4 MG/DL (0.3-1.2); BLOOD UREA NITROGEN 13 MG/DL (9-23); CALCIUM LEVEL 7.8 MG/DL (8.5-10.1); CARBON DIOXIDE LEVEL 26 MMOL/L (20-31); CHLORIDE LEVEL 106 MMOL/L (98-107); GLOMERULAR FILTRATION RATE > 60.0 (>56); GLUCOSE, FASTING 92 MG/DL (60-100); MAGNESIUM LEVEL 1.8 MG/DL (1.8-2.4); POTASSIUM SERUM 4.5 MMOL/L (3.5-5.1); SODIUM LEVEL 139 MMOL/L (136-145); TOTAL PROTEIN 5.1 G/DL (5.7-8.2)
[2022-08-01] MEDS: MORPHINE 30 MG SA TAB PO SCH ×2 (09:01→21:31)
[2022-08-01] MEDS: ENOXAPARIN 40MG/0.4ML SYRINGE (J1650 PER 10MG) SC SCH (09:02)
[2022-08-01] MEDS: BENZONATATE 100MG CAPSULE PO PRN ×2 (09:11→21:37)
[2022-08-01] MEDS: FLUTICASONE PROP 0.05% NASAL SPRAY 16 GM (FLONASE) NARES SCH ×2 (12:24→21:00)
[2022-08-01 14:00] VITALS: BP 130/75; TEMP 98.2; O2SAT 95
[2022-08-01] MEDS ORDERED: LevoFLOXacin IV 750 MG in IV 1 EA IV SCH (18:00)
[2022-08-01 22:20] VITALS: BP 113/68; TEMP 98.1; O2SAT 99
[2022-08-02 05:15] VITALS: BP 121/71; TEMP 98.1; O2SAT 98
[2022-08-02] MEDS: MORPHINE 4 MG/ML 1ML VIAL IV PRN ×5 (05:23→23:59)
[2022-08-02] MEDS ORDERED: BACI1CAP PO (08:12)
[2022-08-02] MEDS ORDERED: LEVO1TAB40 PO (08:12)
[2022-08-02] MEDS ORDERED: MUCI1TAB16 PO (08:12)
[2022-08-02] MEDS: guaiFENesin ER 600 MG TAB PO SCH ×2 (08:37→20:46)
[2022-08-02] MEDS: ENOXAPARIN 40MG/0.4ML SYRINGE (J1650 PER 10MG) SC SCH (08:37)
[2022-08-02] MEDS: FLUTICASONE PROP 0.05% NASAL SPRAY 16 GM (FLONASE) NARES SCH ×2 (08:38→20:47)
[2022-08-02] MEDS: MORPHINE 30 MG SA TAB PO SCH ×2 (08:38→20:46)
[2022-08-02 10:31] LABS: BASO # 0.1 10^3/uL (0.0-0.2); BASO % 0.4 % (0.0-1.0); EOS % 0.1 % (0.0-3.0); HEMATOCRIT 37.1 % (42.0-52.0); HEMOGLOBIN 11.8 g/dl (13.5-17.5); LYMPH # 1.2 10^3/uL (1.5-5.0); LYMPH % 5.6 % (24.0-44.0); MEAN CORPUSCULAR HEMOGLOBIN 28.7 pg (27.0-33.0); MEAN CORPUSCULAR HGB CONC 31.8 g/dl (32.0-36.5); MEAN CORPUSCULAR VOLUME 90.3 fl (80.0-96.0); MONO # 1.2 10^3/uL (0.0-0.8); MONO % 5.5 % (2.0-8.0); NEUTROPHILS # 18.3 10^3/uL (1.5-8.5); NEUTROPHILS % 87.6 % (36.0-66.0); PLATELET COUNT, AUTOMATED 403 10^3/uL (150-450); RED BLOOD COUNT 4.11 10^6/uL (4.30-6.10); WHITE BLOOD COUNT 20.9 10^3/uL (4.0-10.0)
[2022-08-02 11:00] LABS: ALBUMIN 1.9 G/DL (3.2-5.2); ALKALINE PHOSPHATASE 148 U/L (46-116); ALT/SGPT 127 U/L (7.0-40); AST/SGOT 104 U/L (<34); BILIRUBIN,TOTAL 0.3 MG/DL (0.3-1.2); BLOOD UREA NITROGEN 13 MG/DL (9-23); CALCIUM LEVEL 8.2 MG/DL (8.5-10.1); CARBON DIOXIDE LEVEL 26 MMOL/L (20-31); CHLORIDE LEVEL 101 MMOL/L (98-107); CREATININE FOR GFR 0.55 MG/DL (0.70-1.30); GLOMERULAR FILTRATION RATE > 60.0 (>56); GLUCOSE, FASTING 93 MG/DL (60-100); POTASSIUM SERUM 3.9 MMOL/L (3.5-5.1); SODIUM LEVEL 135 MMOL/L (136-145); TOTAL PROTEIN 5.5 G/DL (5.7-8.2)
[2022-08-02 12:04] LABS: ERYTHROCYTE SEDIMENTATION RATE > 130 mm/hr (0-20)
[2022-08-02] MEDS ORDERED: ISOVUE-370 76% 100ML VIAL As Ordered ONE (13:45)
[2022-08-02 14:00] VITALS: BP 97/73; TEMP 98.1; O2SAT 96
[2022-08-02] MEDS ORDERED: LevoFLOXacin 750 MG TABLET PO SCH (17:00)
[2022-08-02 18:20] VITALS: BP 112/68
[2022-08-02 21:52] VITALS: BP 91/58; TEMP 98.4; O2SAT 94
[2022-08-03 06:54] VITALS: BP 115/60; TEMP 98.1; O2SAT 97
[2022-08-03] MEDS ORDERED: ERTAPENEM SODIUM 1 GM in NS MINI-BAG PLUS 50 ML IV SCH (08:35)
[2022-08-03] MEDS: FLUTICASONE PROP 0.05% NASAL SPRAY 16 GM (FLONASE) NARES SCH ×2 (09:00→20:57)
[2022-08-03] MEDS: ENOXAPARIN 40MG/0.4ML SYRINGE (J1650 PER 10MG) SC SCH (09:06)
[2022-08-03] MEDS: MEROPENEM INJ 1 GM in IV 1 EA IV SCH ×2 (09:07→17:38)
[2022-08-03] MEDS: guaiFENesin ER 600 MG TAB PO SCH ×2 (09:07→20:57)
[2022-08-03] MEDS: MORPHINE 30 MG SA TAB PO SCH ×2 (09:07→20:56)
[2022-08-03] MEDS ORDERED: MEROPENEM INJ 1 GM in IV 1 EA IV SCH (10:00)
[2022-08-03] MEDS: MORPHINE 30 MG TAB **MSIR PO PRN ×2 (11:18→17:38)
[2022-08-03 14:00] VITALS: BP 114/61; TEMP 98.6; O2SAT 98
[2022-08-03 23:23] VITALS: BP 97/52; TEMP 99.1; O2SAT 98
[2022-08-04] MEDS: MEROPENEM INJ 1 GM in IV 1 EA IV SCH ×3 (02:26→17:00)
[2022-08-04 05:53] VITALS: BP 118/66; TEMP 98.1; O2SAT 95
[2022-08-04] MEDS ORDERED: BENZONATATE 100MG CAPSULE PO PRN (06:00)
[2022-08-04 08:27] LABS: BASO # 0.1 10^3/uL (0.0-0.2); BASO % 0.4 % (0.0-1.0); EOS # 0.1 10^3/uL (0.0-0.5); EOS % 0.5 % (0.0-3.0); HEMATOCRIT 31.2 % (42.0-52.0); LYMPH # 0.9 10^3/uL (1.5-5.0); LYMPH % 6.6 % (24.0-44.0); MEAN CORPUSCULAR HEMOGLOBIN 28.9 pg (27.0-33.0); MEAN CORPUSCULAR HGB CONC 32.1 g/dl (32.0-36.5); MEAN CORPUSCULAR VOLUME 90.2 fl (80.0-96.0); MONO % 6.7 % (2.0-8.0); NEUTROPHILS # 12.2 10^3/uL (1.5-8.5); NEUTROPHILS % 85.2 % (36.0-66.0); PLATELET COUNT, AUTOMATED 366 10^3/uL (150-450); RED BLOOD COUNT 3.46 10^6/uL (4.30-6.10); WHITE BLOOD COUNT 14.3 10^3/uL (4.0-10.0)
[2022-08-04 08:55] LABS: ALBUMIN 1.8 G/DL (3.2-5.2); ALKALINE PHOSPHATASE 139 U/L (46-116); ALT/SGPT 167 U/L (7.0-40); AST/SGOT 147 U/L (<34); BILIRUBIN,TOTAL 0.2 MG/DL (0.3-1.2); BLOOD UREA NITROGEN 13 MG/DL (9-23); CALCIUM LEVEL 7.5 MG/DL (8.5-10.1); CARBON DIOXIDE LEVEL 28 MMOL/L (20-31); CHLORIDE LEVEL 102 MMOL/L (98-107); CREATININE FOR GFR 0.56 MG/DL (0.70-1.30); GLOMERULAR FILTRATION RATE > 60.0 (>56); GLUCOSE, FASTING 110 MG/DL (60-100); POTASSIUM SERUM 4.6 MMOL/L (3.5-5.1); SODIUM LEVEL 135 MMOL/L (136-145); TOTAL PROTEIN 4.9 G/DL (5.7-8.2)
[2022-08-04] MEDS: FLUTICASONE PROP 0.05% NASAL SPRAY 16 GM (FLONASE) NARES SCH ×2 (09:11→20:38)
[2022-08-04] MEDS: ENOXAPARIN 40MG/0.4ML SYRINGE (J1650 PER 10MG) SC SCH (09:11)
[2022-08-04] MEDS: MORPHINE 30 MG SA TAB PO SCH ×2 (09:11→20:38)
[2022-08-04] MEDS: guaiFENesin ER 600 MG TAB PO SCH ×2 (09:11→20:38)
[2022-08-04] MEDS: MORPHINE 30 MG TAB **MSIR PO PRN ×2 (11:52→17:00)
[2022-08-04 13:57] VITALS: BP 118/67; TEMP 99; O2SAT 98
[2022-08-04] MEDS: BENZONATATE 100MG CAPSULE PO SCH ×2 (16:59→20:37)
[2022-08-04 20:17] VITALS: BP 115/69; TEMP 99; O2SAT 97
[2022-08-05] MEDS: MEROPENEM INJ 1 GM in IV 1 EA IV SCH ×2 (02:24→09:33)
[2022-08-05 05:46] VITALS: BP 109/64; TEMP 98.8; O2SAT 97
[2022-08-05 07:19] LABS: BASO # 0.1 10^3/uL (0.0-0.2); BASO % 0.5 % (0.0-1.0); EOS # 0.1 10^3/uL (0.0-0.5); EOS % 0.5 % (0.0-3.0); HEMATOCRIT 31.8 % (42.0-52.0); HEMOGLOBIN 10.2 g/dl (13.5-17.5); LYMPH # 1.1 10^3/uL (1.5-5.0); LYMPH % 10.1 % (24.0-44.0); MEAN CORPUSCULAR HEMOGLOBIN 29.2 pg (27.0-33.0); MEAN CORPUSCULAR HGB CONC 32.1 g/dl (32.0-36.5); MEAN CORPUSCULAR VOLUME 91.1 fl (80.0-96.0); MONO # 0.8 10^3/uL (0.0-0.8); MONO % 7.3 % (2.0-8.0); NEUTROPHILS # 8.9 10^3/uL (1.5-8.5); NEUTROPHILS % 81.1 % (36.0-66.0); PLATELET COUNT, AUTOMATED 366 10^3/uL (150-450); RED BLOOD COUNT 3.49 10^6/uL (4.30-6.10)
[2022-08-05] MEDS ORDERED: BACI1CAP PO (07:37)
[2022-08-05] MEDS ORDERED: METR-265 PO (07:37)
[2022-08-05] MEDS ORDERED: LEVO1TAB40 PO (07:37)
[2022-08-05 07:45] LABS: BLOOD UREA NITROGEN 14 MG/DL (9-23); CALCIUM LEVEL 7.8 MG/DL (8.5-10.1); CARBON DIOXIDE LEVEL 28 MMOL/L (20-31); CHLORIDE LEVEL 102 MMOL/L (98-107); GLOMERULAR FILTRATION RATE > 60.0 (>56); GLUCOSE, FASTING 86 MG/DL (60-100); POTASSIUM SERUM 4.5 MMOL/L (3.5-5.1); SODIUM LEVEL 135 MMOL/L (136-145)
[2022-08-05] MEDS: ENOXAPARIN 40MG/0.4ML SYRINGE (J1650 PER 10MG) SC SCH (09:00)
[2022-08-05] MEDS: BENZONATATE 100MG CAPSULE PO SCH ×2 (09:34→16:00)
[2022-08-05] MEDS: guaiFENesin ER 600 MG TAB PO SCH (09:34)
[2022-08-05] MEDS: MORPHINE 30 MG SA TAB PO SCH (09:35)
[2022-08-05] MEDS: FLUTICASONE PROP 0.05% NASAL SPRAY 16 GM (FLONASE) NARES SCH (09:38)
[2022-08-05] MEDS: MORPHINE 4 MG/ML 1ML VIAL IV PRN (13:11)
== END 2022-08-05 16:20 | disposition home health service (06) | DRG 136 ==
LOC: EDBD 16:20 → M ED 16:20 → M ED INP 19:08 → M MS5PR 20:00
PROVIDERS: ADMIT Internal Medicine; ATTEND General Practice
DX: C34.90 Malignant neoplasm of unspecified part of unspecified bronchus or lung (principal); J85.0 Gangrene and necrosis of lung; J15.6 Pneumonia due to other Gram-negative bacteria; R64 Cachexia; C78.7 Secondary malignant neoplasm of liver and intrahepatic bile duct; C79.51 Secondary malignant neoplasm of bone; E87.1 Hypo-osmolality and hyponatremia; R13.10 Dysphagia, unspecified; I10 Essential (primary) hypertension; R59.1 Generalized enlarged lymph nodes; Z88.0 Allergy status to penicillin; Z79.899 Other long term (current) drug therapy; E78.5 Hyperlipidemia, unspecified; Z87.891 Personal history of nicotine dependence; Z66 Do not resuscitate; G89.29 Other chronic pain

== ENCOUNTER → 2022-08-10 | Outpatient (REF) | payer BC ==
[~2022-08-10] MED LIST changes: +BACI1CAP PO; +METR-265 PO; +MUCI1TAB16 PO
[2022-08-10 17:12] LABS: BASO # 0.1 10^3/uL (0.0-0.2); BASO % 0.9 % (0.0-1.0); EOS # 0.3 10^3/uL (0.0-0.5); EOS % 2.3 % (0.0-3.0); HEMATOCRIT 39.7 % (42.0-52.0); HEMOGLOBIN 12.6 g/dl (13.5-17.5); LYMPH # 2.9 10^3/uL (1.5-5.0); LYMPH % 26.3 % (24.0-44.0); MEAN CORPUSCULAR HEMOGLOBIN 28.8 pg (27.0-33.0); MEAN CORPUSCULAR HGB CONC 31.7 g/dl (32.0-36.5); MEAN CORPUSCULAR VOLUME 90.8 fl (80.0-96.0); MONO # 0.6 10^3/uL (0.0-0.8); MONO % 5.8 % (2.0-8.0); NEUTROPHILS # 7.2 10^3/uL (1.5-8.5); NEUTROPHILS % 64.3 % (36.0-66.0); PLATELET COUNT, AUTOMATED 520 10^3/uL (150-450); RED BLOOD COUNT 4.37 10^6/uL (4.30-6.10); WHITE BLOOD COUNT 11.1 10^3/uL (4.0-10.0)
[2022-08-10 17:43] LABS: ALBUMIN 2.7 G/DL (3.2-5.2); ALKALINE PHOSPHATASE 101 U/L (46-116); ALT/SGPT 57 U/L (7.0-40); AST/SGOT 32 U/L (<34); BILIRUBIN,TOTAL 0.3 MG/DL (0.3-1.2); BLOOD UREA NITROGEN 16 MG/DL (9-23); CALCIUM LEVEL 8.2 MG/DL (8.5-10.1); CARBON DIOXIDE LEVEL 26 MMOL/L (20-31); CHLORIDE LEVEL 105 MMOL/L (98-107); CREATININE FOR GFR 0.63 MG/DL (0.70-1.30); GLOMERULAR FILTRATION RATE > 60.0 (>56); GLUCOSE, FASTING 104 MG/DL (60-100); POTASSIUM SERUM 4.8 MMOL/L (3.5-5.1); SODIUM LEVEL 137 MMOL/L (136-145); TOTAL PROTEIN 6.3 G/DL (5.7-8.2)
== END ==
LOC: M SFHCADAM 16:17
PROVIDERS: ATTEND Family Medicine
DX: J18.9 Pneumonia, unspecified organism (principal); R19.7 Diarrhea, unspecified

== ENCOUNTER → 2022-08-18 | Outpatient (CLI) | payer OTHER ==
[~2022-08-18] VITALS: Ht 177.8 cm; Wt 55.0 kg
[~2022-08-18] MED LIST changes: +MIRT1TAB15 PO
[2022-08-18 11:12] VITALS: BP 122/81; TEMP 98.3; O2SAT 99
== END ==
LOC: M PAL 11:05
PROVIDERS: ATTEND Nurse Practitioner Adult Health
DX: C34.92 Malignant neoplasm of unspecified part of left bronchus or lung (principal); C78.7 Secondary malignant neoplasm of liver and intrahepatic bile duct; C79.51 Secondary malignant neoplasm of bone; R91.8 Other nonspecific abnormal finding of lung field; R59.0 Localized enlarged lymph nodes; Z51.5 Encounter for palliative care; G89.3 Neoplasm related pain (acute) (chronic); Z87.01 Personal history of pneumonia (recurrent); Z92.21 Personal history of antineoplastic chemotherapy; Z92.3 Personal history of irradiation; Z79.891 Long term (current) use of opiate analgesic; K21.9 Gastro-esophageal reflux disease without esophagitis; R64 Cachexia; F32.A Depression, unspecified; Z79.899 Other long term (current) drug therapy; Z87.891 Personal history of nicotine dependence; Z80.6 Family history of leukemia; Z80.1 Family history of malignant neoplasm of trachea, bronchus and lung; Z88.0 Allergy status to penicillin

== ENCOUNTER → 2022-08-23 | Outpatient (CLI) | payer OTHER | LOC: M ONCR 10:33 | PROVIDERS: ATTEND General Practice | DX: C34.32 Malignant neoplasm of lower lobe, left bronchus or lung (principal); C78.7 Secondary malignant neoplasm of liver and intrahepatic bile duct; R00.0 Tachycardia, unspecified; R64 Cachexia; Z71.2 Person consulting for explanation of examination or test findings; Z79.52 Long term (current) use of systemic steroids; Z79.899 Other long term (current) drug therapy; Z88.0 Allergy status to penicillin; Z88.1 Allergy status to other antibiotic agents; Z87.891 Personal history of nicotine dependence; Z92.3 Personal history of irradiation ==

== ENCOUNTER → 2022-09-07 | Outpatient (CLI) | payer OTHER, BC | LOC: M ADAMS 10:06 | PROVIDERS: ATTEND Family Medicine | DX: C34.92 Malignant neoplasm of unspecified part of left bronchus or lung (principal) ==

== ENCOUNTER → 2022-09-13 | Outpatient (CLI) | payer OTHER | LOC: M ONCR 10:23 | PROVIDERS: ATTEND General Practice | DX: R64 Cachexia (principal); C80.1 Malignant (primary) neoplasm, unspecified ==

== ENCOUNTER → 2022-09-29 | Outpatient (CLI) | payer OTHER ==
[~2022-09-29] VITALS: Ht 167.6 cm; Wt 49.5 kg
[2022-09-29 09:24] VITALS: BP 111/78; O2SAT 97
== END ==
LOC: M PAL 09:06
PROVIDERS: ATTEND Nurse Practitioner Adult Health
DX: C34.92 Malignant neoplasm of unspecified part of left bronchus or lung (principal); C78.7 Secondary malignant neoplasm of liver and intrahepatic bile duct; C79.51 Secondary malignant neoplasm of bone; R91.8 Other nonspecific abnormal finding of lung field; R59.0 Localized enlarged lymph nodes; Z51.5 Encounter for palliative care; G89.3 Neoplasm related pain (acute) (chronic); Z87.01 Personal history of pneumonia (recurrent); Z92.21 Personal history of antineoplastic chemotherapy; Z92.3 Personal history of irradiation; K21.9 Gastro-esophageal reflux disease without esophagitis; R64 Cachexia; Z79.891 Long term (current) use of opiate analgesic; F32.A Depression, unspecified; Z79.899 Other long term (current) drug therapy; Z87.891 Personal history of nicotine dependence; Z80.6 Family history of leukemia; Z80.1 Family history of malignant neoplasm of trachea, bronchus and lung; Z88.0 Allergy status to penicillin; R53.83 Other fatigue; Z66 Do not resuscitate

== ENCOUNTER 2022-09-30 06:40 | Day surgery (SDC) | payer OTHER ==
[~2022-09-30] VITALS: Ht 177.8 cm; Wt 49.2 kg
[2022-09-30] MEDS ORDERED: ROCURONIUM BROMIDE 50MG/5ML VIAL As Ordered ONE (06:55)
[2022-09-30] MEDS ORDERED: propofoL 200 MG/20 ML VIAL As Ordered ONE (06:55)
[2022-09-30] MEDS ORDERED: ONDANSETRON 4MG 2ML VIAL As Ordered ONE (06:55)
[2022-09-30] MEDS ORDERED: SUGAMMADEX SODIUM 500 MG/5 ML VIAL (BRIDION) As Ordered ONE (06:55)
[2022-09-30] MEDS ORDERED: LIDOCAINE 2% 100MG/5ML SDV (FOR ANES.) As Ordered ONE (06:55)
[2022-09-30] MEDS ORDERED: ceFAZolin SOD 2 GM in IV 1 EA IV ONE (07:40)
[2022-09-30] MEDS ORDERED: fentaNYL 100 MCG/2 ML INJECTION As Ordered ONE (08:11)
[2022-09-30 12:43] VITALS: BP 104/66; TEMP 97.8; O2SAT 96
[2022-09-30] MEDS ORDERED: LR 1,000 ML IV SCH (13:05)
[2022-09-30] MEDS ORDERED: KETOROLAC 30 MG/ML 1ML VIAL IV ONE (13:05)
[2022-10-06] MEDS ORDERED: SOTO320T PO (09:01)
[2022-10-07] MEDS ORDERED: SOTO320T PO (09:11)
[2022-10-18] MEDS ORDERED: DEXA4TA PO (11:03)
[2022-10-18] MEDS ORDERED: PANT40TA29 PO ×2 (11:03→11:04)
== END 2022-09-30 13:20 | disposition home or self-care (01) ==
LOC: M SDC 06:40
PROVIDERS: ATTEND Surgery
DX: R13.10 Dysphagia, unspecified (principal); C34.90 Malignant neoplasm of unspecified part of unspecified bronchus or lung; Z79.891 Long term (current) use of opiate analgesic; Z79.899 Other long term (current) drug therapy; Z88.0 Allergy status to penicillin
CPT/HCPCS: 43246; C1769; J0690; J3010

== ENCOUNTER → 2022-10-18 | Outpatient (CLI) | payer OTHER ==
[~2022-10-18] MED LIST changes: +PANT40TA29 PO; +SOTO320T PO
== END ==
LOC: M PAL 09:04
PROVIDERS: ATTEND Nurse Practitioner Adult Health
DX: C34.92 Malignant neoplasm of unspecified part of left bronchus or lung (principal); C78.7 Secondary malignant neoplasm of liver and intrahepatic bile duct; C79.51 Secondary malignant neoplasm of bone; R91.8 Other nonspecific abnormal finding of lung field; R59.0 Localized enlarged lymph nodes; Z51.5 Encounter for palliative care; K21.9 Gastro-esophageal reflux disease without esophagitis; R64 Cachexia; F32.A Depression, unspecified; R53.83 Other fatigue; Z66 Do not resuscitate; Z79.891 Long term (current) use of opiate analgesic; Z79.899 Other long term (current) drug therapy; Z80.1 Family history of malignant neoplasm of trachea, bronchus and lung; Z80.6 Family history of leukemia; Z87.01 Personal history of pneumonia (recurrent); Z87.891 Personal history of nicotine dependence; Z88.0 Allergy status to penicillin; Z92.21 Personal history of antineoplastic chemotherapy; Z92.3 Personal history of irradiation; Z93.1 Gastrostomy status